=== PATIENT | female | born 1935 | race Caucasian/White ===

== ENCOUNTER 2019-12-10 11:09 | Inpatient (IN) | payer MEDICARE ==
[~2019-12-10] VITALS: Ht 170.2 cm; Wt 68.0 kg
--- NOTE | 2019-12-10 11:44 | NUR ---
Patient and spouse can not recall the exact dosages of her home medications@this time
[2019-12-10 12:09] LABS: BASOPHILS % (AUTO) 0.4 % (0.0-2.0); EOSINOPHILS # (AUTO) 0.1 K/uL (0.0-0.7); EOSINOPHILS % (AUTO) 1.8 % (0.0-7.0); HEMATOCRIT 32.3 % (31.2-41.9); HEMOGLOBIN 10.7 g/dL (10.9-14.3); LYMPHOCYTES # (AUTO) 0.6 K/uL (20.0-40.0); LYMPHOCYTES % (AUTO) 7.7 % (20.5-51.5); MEAN CORPUSCULAR HEMOGLOBIN 37.3 uug (24.7-32.8); MEAN CORPUSCULAR HGB CONC 33 g/dL (32.3-35.6); MEAN CORPUSCULAR VOLUME 112.8 fL (75.5-95.3); MONOCYTES # (AUTO) 0.4 K/uL (2.0-10.0); MONOCYTES % (AUTO) 5.2 % (0.0-11.0); NEUTROPHILS # (AUTO) 6.7 K/uL (1.8-8.9); NEUTROPHILS % (AUTO) 84.9 % (38.5-71.5); PLATELET COUNT (AUTO) 139 K/uL (179-408); RED BLOOD CELL COUNT(AUTO) 2.86 MIL/uL (3.63-4.92); WHITE BLOOD COUNT (AUTO) 7.9 K/uL (3.8-11.8)
[2019-12-10 12:21] LABS: CARBON DIOXIDE 16 mmol/L (21-32); CHLORIDE 107 mmol/L (98-107); CREATININE 1.5 mg/dL (0.6-1.3); GLUCOSE 123 mg/dL (74-106); POTASSIUM 6.1 mmol/L (3.5-5.1); UREA NITROGEN, BLOOD 66 mg/dL (7-18)
[2019-12-10 12:34] LABS: ALANINE AMINOTRANSFERASE 13 U/L (14-59); ALKALINE PHOSPHATASE 84 U/L (50-136); ASPARTATE AMINOTRANSFERASE 14 U/L (15-37); BILIRUBIN,DIRECT 0.2 mg/dL (0.0-0.2); BILIRUBIN,TOTAL 0.4 mg/dL (0.2-1.0); TOTAL PROTEIN, SERUM 7.3 g/dL (6.4-8.2)
[2019-12-10] MEDS ORDERED: INSULIN REGULAR, HUMAN 300 UNIT/3 ML VIAL IV ONE (13:00)
[2019-12-10] MEDS ORDERED: DEXTROSE 50% 50 ML DISP.SYRIN IV ONE (13:00)
[2019-12-10] MEDS ORDERED: SODIUM POLYSTYRENE SULFONATE 15 G/60 ML LIQUID UDC PO ONE (13:15)
[2019-12-10] MEDS ORDERED: CALCIUM CHLORIDE 1 GM/10 ML DISP.SYRIN IVP ONE ×2 (13:15→13:53)
[2019-12-10] MEDS ORDERED: SODIUM BICARBONATE 8.4% 50 MEQ/50 ML DISP.SYRIN IV ONE ×2 (13:30→13:53)
[2019-12-10] MEDS ORDERED: MAGNESIUM HYDROXIDE 30 ML LIQUID UDC PO PRN (13:45)
[2019-12-10] MEDS ORDERED: Z GUARD REMEDY PASTE 57 GM TUBE TOP PRN (13:45)
[2019-12-10] MEDS ORDERED: HYDROCODONE/APAP 5-325MG TABLET PO PRN (13:45)
[2019-12-10] MEDS ORDERED: ACETAMINOPHEN 325 MG TABLET PO PRN (13:45)
[2019-12-10] MEDS ORDERED: ONDANSETRON 4 MG/2 ML VIAL IV PRN (13:45)
[2019-12-10 13:51] LABS: *BILIRUBIN,URIN NEGATIVE (NEGATIVE); *CLARITY,URINE CLEAR (CLEAR); *COLOR,URINE YELLOW (YELLOW); *KETONES,URINE NEGATIVE (NEGATIVE); *UROBILINOGEN,URINE 0.2 E.U./dl (NORMAL); LEUKOCYTE ESTERASE ,URINE 1+ (NEGATIVE); NITRITE, URINE NEGATIVE (NEGATIVE); UGLUCOSE NEGATIVE (NEGATIVE)
[2019-12-10] MEDS ORDERED: INSULIN REGULAR, HUMAN 300 UNIT/3 ML VIAL ONE (13:52)
[2019-12-10] MEDS ORDERED: DEXTROSE 50% 50 ML DISP.SYRIN ONE (13:52)
[2019-12-10 13:55] LABS: *BLOOD, URINE TRACE (NEGATIVE)
[2019-12-10] MEDS ORDERED: SODIUM POLYSTYRENE SULFONATE 15 G/60 ML LIQUID UDC ONE (13:55)
[2019-12-10] MEDS ORDERED: CEFTRIAXONE 1 G in IV DEXTROSE 5% 50 ML IV ONE (14:00)
[2019-12-10] MEDS ORDERED: AZITHROMYCIN IV 500 MG in IV DEXTROSE 5% 250 ML IV ONE (14:00)
[2019-12-10] MEDS ORDERED: CEFTRIAXONE /D5W 50ML IVPB **ER PYXIS IV ONE (14:18)
[2019-12-10] MEDS ORDERED: AZITHROMYCIN 500MG/ D5W 250ML IVPB **ER PYXIS ONLY IV ONE (14:18)
[2019-12-10 16:26] LABS: CARBON DIOXIDE 20 mmol/L (21-32); CHLORIDE 108 mmol/L (98-107); CREATININE 1.6 mg/dL (0.6-1.3); GLUCOSE 123 mg/dL (74-106); UREA NITROGEN, BLOOD 64 mg/dL (7-18)
[2019-12-10 17:04] LABS: BACTERIA,URINE NONE SEEN /HPF (NONE SEEN); SQUAMOUS EPITHELIAL CELL,UR FEW /HPF (NONE SEEN)
--- NOTE | 2019-12-10 17:25 | NUR ---
Full telephone SBAR report given to VANESSA Owens.
--- NOTE | 2019-12-10 17:50 | NUR ---
Brought up to room 310-T for admission. Pt stable and nad noted upon transfer.
--- NOTE | 2019-12-10 18:15 | NUR ---
ADMITTED FROM HOME AN 84 YO FEMALE WITH HYPERKALEMIA, TRACE OF UTI, AWAKE ALERT AND ORIENTED X3, DENIES PAIN OR SOB ON ADMISSION. ROUTINE ADMISSION ASSESSMENT INITIATED.
[2019-12-10 18:30] VITALS: BP 138/48
[2019-12-10] MEDS ORDERED: PRED20TA PO (18:56)
[2019-12-10] MEDS ORDERED: CLOB15CR5 TP (18:56)
[2019-12-10] MEDS ORDERED: CAPE500T15 PO (18:56)
[2019-12-10] MEDS ORDERED: CEPH250C PO (18:56)
--- NOTE | 2019-12-10 19:45 | NUR ---
Received patient awake and alert. Patient shows no signs or symptoms of distress at this time. Sinus rubin on the tele monitor. Dr. Bee paged by VANESSA Owens to reconcile home meds. Awaiting call back. Safety measures in place. Will continue to monitor patient.
--- NOTE | 2019-12-10 19:53 | NUR ---
Medication list reconciled by Dr. Bee.
[2019-12-10 20:21] VITALS: BP 109/34
--- NOTE | 2019-12-10 20:44 | NUR ---
Report given to VANESSA Galicia for, continuation of care.
[2019-12-10] MEDS: CLOBETASOL PROPIONATE 0.05% OINT 15 GM TUBE TOP SCH (20:45)
--- NOTE | 2019-12-10 20:45 | NUR ---
This nurse received hand-off report from VANESSA Meyers. Patient received into care, laying in bed, asleep and resting comfortably. Patient has no s/s of acute distress or discomfort noted or observed by this nurse. All safety and fall precaution measures are in place. Call light and personal items are within reach. Will continue to monitor and assess.
--- NOTE | 2019-12-10 21:15 | NUR ---
This nurse spoke with patient with regard to her prescribed Capecitabine 500 mg PO, 2 caps, BID, which is taken for 1 week and then patient has 1 week off. Per patient, this is her week to take medication with the final dose for her week on being 12/11/2019. She will then have a week off from the medication beginning 12/12/2019 and then restart the regime on 12/19/2019. This nurse will input medication in home reconciliation for MD to review.
[2019-12-10] MEDS: ENOXAPARIN SODIUM 30 MG/0.3 ML DISP.SYRIN SUBCUT SCH (21:22)
[2019-12-11 00:54] VITALS: BP 106/28
--- NOTE | 2019-12-11 05:00 | NUR ---
Patient slept intermittently throughout night after being received into this nurse's care. Patient was able to provide urine for urine sodium analysis, as ordered, and specimen was taken to lab. All prescribed medications for this shift were provided as ordered and tolerated well by patient with no ASE verbalized by patient or noted/observed by this nurse. All safety and fall precaution measures remain in place. Call light and personal items remain within reach.
[2019-12-11 06:05] VITALS: BP 125/48
[2019-12-11 06:57] LABS: *BILIRUBIN,URIN NEGATIVE (NEGATIVE); *CLARITY,URINE CLEAR (CLEAR); *COLOR,URINE LIGHT YELLOW (YELLOW); *KETONES,URINE NEGATIVE (NEGATIVE); *UROBILINOGEN,URINE 0.2 E.U./dl (NORMAL); LEUKOCYTE ESTERASE ,URINE 1+ (NEGATIVE); NITRITE, URINE NEGATIVE (NEGATIVE); UGLUCOSE TRACE (NEGATIVE)
[2019-12-11 07:02] LABS: BASOPHILS % (AUTO) 0.4 % (0.0-2.0); EOSINOPHILS # (AUTO) 0.1 K/uL (0.0-0.7); EOSINOPHILS % (AUTO) 2.3 % (0.0-7.0); HEMATOCRIT 30.3 % (31.2-41.9); HEMOGLOBIN 10.2 g/dL (10.9-14.3); LYMPHOCYTES # (AUTO) 0.9 K/uL (20.0-40.0); LYMPHOCYTES % (AUTO) 13.6 % (20.5-51.5); MEAN CORPUSCULAR HEMOGLOBIN 37.8 uug (24.7-32.8); MEAN CORPUSCULAR HGB CONC 34 g/dL (32.3-35.6); MEAN CORPUSCULAR VOLUME 111.9 fL (75.5-95.3); MONOCYTES # (AUTO) 0.5 K/uL (2.0-10.0); MONOCYTES % (AUTO) 8.3 % (0.0-11.0); NEUTROPHILS # (AUTO) 4.7 K/uL (1.8-8.9); NEUTROPHILS % (AUTO) 75.4 % (38.5-71.5); PLATELET COUNT (AUTO) 131 K/uL (179-408); WHITE BLOOD COUNT (AUTO) 6.3 K/uL (3.8-11.8)
[2019-12-11 07:06] LABS: CARBON DIOXIDE 22 mmol/L (21-32); CHLORIDE 108 mmol/L (98-107); CHOLESTEROL 178 mg/dL (<200); CREATININE 1.4 mg/dL (0.6-1.3); GLUCOSE 112 mg/dL (74-106); HDL CHOLESTEROL 58 mg/dL (40-60); TRIGLYCERIDES 92 MG/DL (30-150); UREA NITROGEN, BLOOD 56 mg/dL (7-18)
[2019-12-11 07:26] LABS: *BLOOD, URINE TRACE (NEGATIVE); *CREATININE,URINE 56.6 mg/dL (30-125); *URINE TOTAL PROTEIN RANDOM 12.5 mg/dL (<150/24HR)
--- NOTE | 2019-12-11 08:00 | NUR ---
Dr Daniel Marroquin and Keyanna MARTE hospitalist here to see patient. Noted blisters on Ue's and right and left thigh and left toes. Sent Personal medications in pharmacy to eval medications. Awaiting medications to be reconciled. Pt alert and oriented x 4. Pt denies any c/o pain. measurement and sensing technician notified of test still need to be done. Call light is within reach. Plan of care for skin management, fall and aspiration precaution implemented.
[2019-12-11] MEDS: FUROSEMIDE 20 MG TABLET PO SCH (08:45)
[2019-12-11] MEDS: predniSONE 20 MG TABLET PO SCH (08:45)
[2019-12-11] MEDS: CLOBETASOL PROPIONATE 0.05% OINT 15 GM TUBE TOP SCH ×2 (08:47→16:46)
[2019-12-11] MEDS ORDERED: CAPECITABINE 1000 MG PO SCH (09:30)
--- NOTE | 2019-12-11 10:30 | NUR ---
Echo done prelim result put in chart. Pt tele sinus rubin noted. Awaiting janitor helper to see patient.
[2019-12-11 11:00] LABS: BACTERIA,URINE FEW /HPF (NONE SEEN); SQUAMOUS EPITHELIAL CELL,UR MODERATE /HPF (NONE SEEN)
[2019-12-11 11:54] VITALS: BP 106/65
--- NOTE | 2019-12-11 13:30 | NUR ---
EKG done. Dr elizalde compliance auditor here to see patient. Pt has good appetite for lunch.
[2019-12-11 15:21] VITALS: BP 123/45
--- NOTE | 2019-12-11 17:55 | NUR ---
Urine Specimen sent to lab. Pt is in no acute distress.
--- NOTE | 2019-12-11 19:45 | NUR ---
Received patient awake and alert. Patient shows no signs or symptoms of distress at this time. Vital signs stable. Sinus rubin on tele monitor. Safety measures in place. Will continue to monitor patient.
[2019-12-11 20:08] VITALS: BP 125/42
[2019-12-11] MEDS: ENOXAPARIN SODIUM 30 MG/0.3 ML DISP.SYRIN SUBCUT SCH (20:17)
[2019-12-11] MEDS: CAPECITABINE 500 MG PO SCH ×2 (20:17→20:24)
--- NOTE | 2019-12-11 20:40 | NUR ---
Attempted to administer capecitabine but patient declines. Patient states, "This is my off-week so I do not need to take this medication until tomorrow." Medication not administered.
--- NOTE | 2019-12-11 20:41 | NUR ---
Report given to VANESSA Tabares, for continuation of care.
--- NOTE | 2019-12-11 20:42 | NUR ---
Report received from VANESSA Meyers. Pt is awake and denies any acute distress or pain at this time. Pt is sinus rubin on tele monitor. V/S stable on room air. Pt is noted to have multiple blisters on bilateral lower extremities. IV is intact. Safety measures in place. Call light within reach. Will continue with the plan of care.
[2019-12-12] VITALS: BP 125/68
[2019-12-12 04:00] VITALS: BP 110/43
--- NOTE | 2019-12-12 06:27 | NUR ---
Pt slept through the night. Pt is now awake and denies any acute distress or pain at this time. V/S stable on room air. Sinus Bruno on tele monitor. Comfort care and needs attended. Fall and aspiration precaution maintained. Safety measures in place. Call light within reach. Will endorse to the oncoming nurse accordingly.
[2019-12-12] MEDS ORDERED: THYROID 60 MG TABLET PO SCH (07:00)
[2019-12-12] MEDS: predniSONE 20 MG TABLET PO SCH (08:18)
[2019-12-12] MEDS: FUROSEMIDE 20 MG TABLET PO SCH (08:18)
[2019-12-12] MEDS: CAPECITABINE 500 MG PO SCH (08:20)
[2019-12-12] MEDS: CLOBETASOL PROPIONATE 0.05% OINT 15 GM TUBE TOP SCH (08:20)
[2019-12-12 10:53] LABS: BASOPHILS % (AUTO) 0.2 % (0.0-2.0); EOSINOPHILS # (AUTO) 0.2 K/uL (0.0-0.7); EOSINOPHILS % (AUTO) 2.3 % (0.0-7.0); HEMOGLOBIN 11.3 g/dL (10.9-14.3); LYMPHOCYTES # (AUTO) 1.1 K/uL (20.0-40.0); LYMPHOCYTES % (AUTO) 12.7 % (20.5-51.5); MEAN CORPUSCULAR HEMOGLOBIN 37.4 uug (24.7-32.8); MEAN CORPUSCULAR HGB CONC 33 g/dL (32.3-35.6); MEAN CORPUSCULAR VOLUME 112.2 fL (75.5-95.3); MONOCYTES # (AUTO) 0.7 K/uL (2.0-10.0); MONOCYTES % (AUTO) 7.3 % (0.0-11.0); NEUTROPHILS % (AUTO) 77.5 % (38.5-71.5); PLATELET COUNT (AUTO) 139 K/uL (179-408); RED BLOOD CELL COUNT(AUTO) 3.03 MIL/uL (3.63-4.92)
[2019-12-12 11:10] LABS: ALANINE AMINOTRANSFERASE 11 U/L (14-59); ALKALINE PHOSPHATASE 87 U/L (50-136); ASPARTATE AMINOTRANSFERASE 13 U/L (15-37); BILIRUBIN,TOTAL 0.3 mg/dL (0.2-1.0); CARBON DIOXIDE 23 mmol/L (21-32); CHLORIDE 106 mmol/L (98-107); CREATININE 1.4 mg/dL (0.6-1.3); GLUCOSE 119 mg/dL (74-106); MAGNESIUM 1.7 mg/dL (1.8-2.4); PHOSPHOROUS 2.8 mg/dL (2.5-4.9); TOTAL PROTEIN, SERUM 6.9 g/dL (6.4-8.2); UREA NITROGEN, BLOOD 50 mg/dL (7-18)
[2019-12-12 11:45] VITALS: BP 105/31
--- NOTE | 2019-12-12 12:00 | NUR ---
Discharge instructions given to patient. Instructed to follow up with primary doctor within 1 week and bring her d/c paper with DR discharge summary and lab works. IV d/c. Gave back pt's own medications. Pt verbalized understanding. Pt to f/u with PMD re: vaccinations. Valuable clothes given back to patient.
--- NOTE | 2019-12-12 12:30 | NUR ---
PT REFUSED TO HAVE HER BLISTERS RETAKEN. Unable to retake pix of wound.
--- NOTE | 2019-12-12 12:45 | NUR ---
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 Valuables and d/c papers with patient. Pt is in no acute distress. Pt dressed up for discharge.
--- NOTE | 2019-12-12 12:50 | NUR ---
PT d/c home. [facility] to arranged Home Health to see patient for physical therapy. Pt is in no acute distress. 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
== END 2019-12-12 12:50 | disposition home health service (06) | DRG 193 ==
LOC: ER 11:09 → TELE3 16:40
PROVIDERS: ADMIT Internal Medicine; ATTEND Internal Medicine
DX: J15.9 Unspecified bacterial pneumonia (principal); N17.0 Acute kidney failure with tubular necrosis; I50.32 Chronic diastolic (congestive) heart failure; N39.0 Urinary tract infection, site not specified; J90 Pleural effusion, not elsewhere classified; L12.0 Bullous pemphigoid; J98.11 Atelectasis; M48.54XA Collapsed vertebra, not elsewhere classified, thoracic region, initial encounter for fracture; E87.5 Hyperkalemia; E03.9 Hypothyroidism, unspecified; D64.9 Anemia, unspecified; I11.0 Hypertensive heart disease with heart failure; Z85.3 Personal history of malignant neoplasm of breast; F41.9 Anxiety disorder, unspecified; K21.9 Gastro-esophageal reflux disease without esophagitis; T50.0X5A Adverse effect of mineralocorticoids and their antagonists, initial encounter; Y92.89 Other specified places as the place of occurrence of the external cause
CPT/HCPCS: 36415; 70030-TC; 71045; 71250; 76770; 83735; 84100; 84156; 84300; 85025; 85730; 86140; 87040; 87086; 93005; 93307; A4663; G0378; J0456; J0696; J1650; J1815; J3490; J7512